=== PATIENT | female | born 1945 | race Caucasian/White ===

== ENCOUNTER 2017-05-01 22:38 | Emergency (ER) | payer SELFPAY ==
[~2017-05-01] VITALS: Ht 165.1 cm; Wt 63.5 kg
[2017-05-01 22:38] VITALS: BP 155/86
--- NOTE | 2017-05-01 22:42 | NUR ---
INFORMED BY EMT "PT JUST LEFT"
== END 2017-05-01 23:04 | disposition left against medical advice (07) ==
LOC: ER 22:39
DX: Z53.21 Procedure and treatment not carried out due to patient leaving prior to being seen by health care provider (principal)